=== PATIENT | male | born 1955 | race Caucasian/White ===

== ENCOUNTER 2022-03-14 06:55 | Day surgery (SDC) | payer OTHER ==
--- NOTE | 2022-03-10 10:51 | RAD REPORT ---
EXAM DESCRIPTION: US - Scrotum Testicles - 03/10/2022 10:40 am CLINICAL HISTORY: Left groin pain Preop pending colonoscopy COMPARISON: None FINDINGS: Right testicle measures 3.7 x 1.9 x 3.1 centimeters. Echotexture is homogeneous. Normal bl ood flow Left testicle measures 4 x 2.2 x 3 centimeters. Echotexture is homogeneous. Normal blood flow The epididymides are normal in size and echotexture. Normal blood flow is seen. IMPRESSION: Unremarkable exam
[2022-03-10 10:52] LABS: SARS-CoV-2 Antigen Rapid Res Negative (Negative)
[2022-03-14] MEDS ORDERED: Ringers Lactate 1,000 ML IV ONE (07:25)
[2022-03-14] MEDS ORDERED: propofoL 200 MG/20 ML VIAL IV ONE ×2 (07:46)
[2022-03-14] MEDS ORDERED: LIDOCAINE 1% MPF 5 ML VIAL ONE (07:47)
[2022-03-14] MEDS ORDERED: SIMETHICONE 40 MG/ 0.6 ML ONE (07:50)
--- NOTE | 2022-03-14 08:21 | ENDO RPT ---
[address], [address] COLONOSCOPY PROCEDURE REPORT EXAM DATE: 03/14/2022 PATIENT NAME: Cj Ortiz MR #: [id number] BIRTHDATE: 1955 ATTENDING: Roberto Barriga DR STATUS: outpatient CLOTHES WRINGER: Alicia Dumont RN and Giacomo Mcgee [facility] INDICATIONS: The patient is a 66 yr old Male here for a colonoscopy due to colon cancer screening PROCEDURE PERFORMED: Colonoscopy with biopsy - cold polypectomy MEDICATIONS: Per Anesthesia. ESTIMATED BLOOD LOSS: None CONSENT: The patient understands the risks and benefits of the procedure and understands that these risks include, but are not limited to: sedation, allergic reaction, infection, perforation and/or bleeding. Alternative means of evaluation and treatment include, among others: physical exam, x-rays, and/or surgical intervention. The patient elects to proceed with this endoscopic procedure. DESCRIPTION OF PROCEDURE: During intra-op preparation period all mechanical medical equipment was checked for proper function. Hand hygiene and appropriate measures for infection prevention was taken. Procedure, possible complications, alternatives including, but not limited to possibility of bleeding, perforation, tear, infection, sepsis, need for surgery, need for blood transfusion, were explained to the patient. After the risks, benefits and alternatives of the procedure were thoroughly explained, Informed consent was verified, confirmed and timeout was successfully executed by the treatment team. The patient was placed in the left lateral position. A digital rectal exam was performed and revealed internal hemorrhoids and A digital rectal exam was performed and revealed external hemorrhoids. After appropriate level of anesthesia, the scope was passed. The EC-[id number] ([id number]) endoscope was introduced through the anus and advanced to the terminal ileum which was intubated for a short distance. The quality of the prep was fair. The instrument was then slowly withdrawn as the colon was fully examined. Scope withdrawal time was 9 minutes. COLON FINDINGS: A smooth sessile polyp ranging between 3-5mm in size was found in the transverse colon. A polypectomy was performed with cold forceps. The resection was complete, the polyp tissue was completely retrieved and sent to histology. Mild diverticulosis was noted in the sigmoid colon. No bleeding was noted from the diverticulosis. Moderate sized internal and external hemorrhoids were found. Retroflexed views revealed no abnormalities. The scope was then completely withdrawn from the patient and the procedure terminated. ADVERSE EVENTS: There were no complications. IMPRESSIONS: 1. Sessile polyp ranging between 3-5mm in size was found in the transverse colon; polypectomy was performed in a piecemeal fashion with cold forceps 2. Mild diverticulosis was noted in the sigmoid colon 3. Moderate sized internal and external hemorrhoids RECOMMENDATIONS: 1. avoid NSAIDS for 2 weeks 2. await biopsy results 3. fiber rich diet 4. follow-up: office 2 week(s) 5. Monitor for any evidence of rectal bleeding. 6. increase dietary water 7. hemorrhoidal hygiene 8. yearly hemoquant 9. yearly hemoccult starting in 4 years RECALL: for Colonoscopy, pending biopsy results. Roberto Barriga DR eSigned: Roberto Barriga DR 03/14/2022 8:20 AM cc: CPT CODES: ICD9 CODES: PATIENT NAME: Cj Ortiz MR#: [id number]
[2022-03-14 09:00] VITALS: BP 113/54; TEMP 97.4; O2SAT 97
== END 2022-03-14 08:56 | disposition home or self-care (01) ==
LOC: OR 06:55
PROVIDERS: ATTEND Surgery
PROC: 0DBL8ZX Excision of Transverse Colon, Via Natural or Artificial Opening Endoscopic, Diagnostic (ICD-10-PCS; principal; 2022-03-14 08:00)
DX: Z12.11 Encounter for screening for malignant neoplasm of colon (principal); K63.5 Polyp of colon; K64.8 Other hemorrhoids; K64.4 Residual hemorrhoidal skin tags; K57.30 Diverticulosis of large intestine without perforation or abscess without bleeding; Z20.822 Contact with and (suspected) exposure to COVID-19
CPT/HCPCS: 36415; 88305; 76870; 87811; 45380; J2704 ×2; J7120

== ENCOUNTER 2022-07-07 07:14 | Day surgery (SDC) | payer OTHER ==
[2022-07-01 15:05] LABS: Potassium 4.1 mmol/L (3.5-5.1)
--- NOTE | 2022-07-02 11:36 | EKG ---
Test Date: 2022-07-01 Test Time: 14:28:01 Moth Exterminator: LOREN MEASUREMENT RESULTS: Intervals: Rate: 64 IA: 168 QRSD: 102 QT: 422 QTc: 435 [place]: P: 46 IA: 168 QRS: 55 T: 85 INTERPRETIVE STATEMENTS: Normal sinus rhythm Normal ECG No previous ECG available for comparison Electronically Signed On 07-02-22 11:34:36 NEWS WIRE PHOTO OPERATOR by Edwin Briones
[2022-07-07] MEDS ORDERED: Ringers Lactate 1,000 ML IV ONE (07:34)
[2022-07-07] MEDS ORDERED: CEFAZOLIN SODIUM 2 GM/VIAL ONE (07:34)
[2022-07-07] MEDS ORDERED: BUPIVACAINE 0.25% PF 30 ML VIAL ONE (08:06)
[2022-07-07] MEDS ORDERED: MIDAZOLAM HCL 2 MG/2 ML INJ ONE (08:22)
[2022-07-07] MEDS ORDERED: ROCURONIUM 50 MG/5 ML VIAL IV ONE ×2 (08:22→09:21)
[2022-07-07] MEDS ORDERED: FENTANYL CITR 100 MCG/2 ML ONE (08:22)
[2022-07-07] MEDS ORDERED: ONDANSETRON 4 MG/2 ML VIAL ONE (08:22)
[2022-07-07] MEDS ORDERED: propofoL 200 MG/20 ML VIAL IV ONE ×2 (08:22→10:20)
[2022-07-07] MEDS ORDERED: LIDOCAINE 2% MPF 5 ML VIAL ONE (08:22)
[2022-07-07] MEDS ORDERED: LIDOCAINE HCL JELLY 2% 6 ML SYRINGE TOP ONE (08:31)
[2022-07-07] MEDS ORDERED: dexAMETHasone 10 MG/ML VIAL ONE (08:53)
--- NOTE | 2022-07-07 10:25 | P.OP ---
Agricultural Consultant: Ngoc Conklin Preoperative diagnosis: LEFT inguinal and umbilical hernias Postoperative diagnosis: LEFT inguinal and umbilical hernias Primary procedure: Open LEFT inguinal hernia repair with mesh Secondary procedure: Open Umbilical Hernia Repair with mesh Anesthesia: GETA + Local Estimated blood loss: <10cc Specimen: hernia contents - inguinal Findings: Pantaloon Inguinal Hernia, ext oblique aponeurosis thin, incarcerated fat Complications: None Implants: Bard Perfix Medium plug and patch, Bard Ventralex 4.3cm Strap mesh Transferred to: Recovery Room Condition: Good
[2022-07-07] MEDS ORDERED: KETOROLAC 30 MG/ML INJ ONE (10:29)
[2022-07-07] MEDS ORDERED: NEOSTIGMINE 1 MG/ML -5 ML ONE (10:33)
[2022-07-07] MEDS ORDERED: GLYCOPYRROLATE 0.2 MG/ML SYR ONE (10:33)
[2022-07-07] MEDS ORDERED: HYDROCODONE/APAP 10/325 TAB ONE (11:48)
[2022-07-07 12:33] VITALS: BP 154/75; TEMP 97.6; O2SAT 100
--- NOTE | 2022-07-07 22:05 | OP ---
Date of Procedure: 07/07/2022 Surgeon: Edilia Barriga MD, Preoperative Diagnoses: 1.Left inguinal hernia. 2.Umbilical hernia. Postoperative Diagnoses: 1.Left inguinal hernia. 2.Umbilical hernia. Procedures Performed: 1.Open left inguinal hernia repair with mesh. 2.Open umbilical hernia repair with mesh. Anesthesia: General endotracheal plus local with 0.25% Marcaine. Estimated Blood Loss: Less than 2 cc. Specimen: Hernia contents from the left inguinal hernia, consistent with cord lipoma and preperitone al fat. Findings: 1.Left pantaloon type inguinal hernia with incarcerated adipose tissue. 2.External oblique aponeurosis was thin. 3.Incarcerated fat was noted in the umbilical hernia. Complications: None. Implants: 1.Left inguinal Bard medium PerFix plug and patch hernia repair system. 2.Bard Ventralex 4.3 cm with secure strap mesh used in the umbilical position. Disposition: The patient transferred to recovery room in good condition. Procedure In Detail: After informed consent was obtained, the patient was prepped and draped in the usual sterile fashion after adequate anesthesia achieved. I palpated the area of the pubic tubercle and palpated the area of the inguinal hernia on the left inguinal region, making a linear incision do wn through subcutaneous fat in the inguinal region on the left using a 15 blade. I then dissected do wn through Camper's fat and Sergio fascia to expose a thin alveolar type external oblique aponeurosis . This was opened sharply in its entirety with Metzenbaum scissors down to the deep inguinal ring ex tending medially as well. At this point, the spermatic cord and structures were encircled with a Pen alek drain and I dissected cord lipoma off and sent it off for pathologic examination off the spermat ic cord and structures were protected throughout the ilioinguinal iliohypogastric nerves were laid be hind the clamp on the external oblique aponeurosis and protected throughout. At this point, I dissec edilia down to the deep inguinal ring and found there to be defect in the floor of the inguinal canal as well as through the indirect position. Therefore, this was a pantaloon type direct and indirect com bined hernia with general laxity of the supporting tissues. At this point, I the spermatic cord and structures from the hernia sac as well as the hernia contents, which was found to be preper itoneal fat, which was ligated using a 2-0 silk tie. This adipose tissue was then ligated and sent o ff for pathologic examination. I then palpated the deep inguinal ring hernia defect and pushed the t issue back in the preperitoneal space allowing for appropriate landing zone of a medium Bard PerFix p lug. This was hydrated and brought into the preperitoneal space at this point and opened. At this p oint, I used the portion to secure the hernia plug in 3 places circumferentially around at 60 degrees angles with each other with good apposition of the mesh to the tissues. Valsalva proved that the hernia plug was in good position at this point. I then sized the hernia plug appropriately. After trimming the edges and sizing appropriately, I secured it to the pubic tubercle on the medial aspect and then to the medial and lateral shelving edges of both the inguinal ligament and the inter nal oblique aponeurosis and reconstitute the deep inguinal ring with a combination of interrupted 2-0 PDS sutures. Only 2-0 PDS sutures were used in this portion of the procedure up to this point. The area was copiously irrigated and spermatic cord and structures were palpated. The testicle was redu akira to the normal anatomic position and there was a tension-free repair at this point. At this point , I reapproximated the external oblique aponeurosis using running 3-0 Vicryl suture as well as Camper 's fat and Sergio fascia en bloc using the same 3-0 Vicryl suture. I then irrigated the area once ag ain and closed the deep dermal tissue with same set 3-0 Vicryl suture and then the skin was closed wi th a 4-0 Monocryl in a running fashion and a Dermabond placed over the top. The patient tolerated th e procedure well without evidence of complication. At this point, I then turned my attention to the umbilical area using a curvilinear incision with a 15 blade at the infraumbilical position. I dissec edilia down through the skin and subcutaneous tissues. I then bluntly palpated and circumferentially di ssected free the hernia sac. I opened the hernia sac at this point, reduced the preperitoneal fat to the normal preperitoneal position and then imbricated the sac pushing it internally and allowing for an appropriate landing zone in the preperitoneal position. I palpated it with a finger. I digitize d in the plane, allowing for an appropriate landings portion. The hernia defect was approximately 0. 5 cm. Using my small finger, I was able to palpate the area and allow for an appropriate landing zon e of a 4.3 cm Bard Ventralex mesh. At this point, the mesh was brought in a parachute-type fashion u sing 0 PDS sutures in a circumferential fashion. I secured the hernia mesh in the preperitoneal posi tion and the parachute type fashion and it had good apposition to the abdominal wall using the 0 PDS sutures. These were secured circumferentially around. At this point, the area was copiously irrigat ed. I then closed the fascia over the top using a 0 PDS suture in an interrupted fashion and trimmed at this point. I then secured the umbilicus to the fascia using a 3-0 Vicryl suture and then irrigated the area once again and then dried it with a laparotomy pad. I then closed the deep d ermal plane using interrupted 3-0 Vicryl sutures and closed the skin with a 4-0 Monocryl in a running fashion. Dermabond placed over top. The patient tolerated the procedure well without evidence of c omplication and transferred back in good condition. All counts were correct at the end of the case. BOLA/MARY Voice ID: [id number] Report ID: [id number]
== END 2022-07-07 12:31 | disposition home or self-care (01) ==
LOC: OR 07:14
PROVIDERS: ATTEND Surgery
PROC: 0YU60JZ Supplement Left Inguinal Region with Synthetic Substitute, Open Approach (ICD-10-PCS; principal; 2022-07-07 08:30)
PROC: 0WUF0JZ Supplement Abdominal Wall with Synthetic Substitute, Open Approach (ICD-10-PCS; 2022-07-07 08:30)
DX: K40.20 Bilateral inguinal hernia, without obstruction or gangrene, not specified as recurrent (principal); K42.9 Umbilical hernia without obstruction or gangrene; M19.90 Unspecified osteoarthritis, unspecified site; I10 Essential (primary) hypertension
CPT/HCPCS: 93005; 80048; 36415; 88302; 49505; 49585; J2704 ×2; J2001; J2250; J3010; J1100; J2710; J7120; J2405